=== PATIENT | female | born 1955 | race Caucasian/White ===

== ENCOUNTER → 2016-07-02 | Outpatient (CLI) | payer OTHER ==
[~2016-07-02] MED LIST: IMITREX6 MG/0.5 M SUB-Q; KEFLEX500 MG PO; PRILOSEC20 MG PO; TYLENOL325 MG PO
[2016-07-02 09:30] LABS: CREATININE 0.8 mg/dL (0.5-1.1)
[2016-07-02 09:31] LABS: ESTIMATED GFR (MDRD EQUATION) > 60
== END | disposition disaster alternative care site (69) ==
LOC: GLAB 08:40 → GRAD 10:30
PROVIDERS: Registered Nurse
DX: R10.32 Left lower quadrant pain (principal); K57.92 Diverticulitis of intestine, part unspecified, without perforation or abscess without bleeding
CPT/HCPCS: Q9967

== ENCOUNTER → 2016-07-06 | Outpatient (CLI) | payer OTHER | END | disposition disaster alternative care site (69) | LOC: GBCOE 15:36 | DX: Z12.31 Encounter for screening mammogram for malignant neoplasm of breast (principal) | CPT/HCPCS: G0202 ==